=== PATIENT | male | born 1990 | race Caucasian/White ===

== ENCOUNTER 2020-08-21 11:10 | Outpatient (REF) | payer OTHER, SELFPAY | END 2020-08-21 11:11 | disposition home or self-care (01) | LOC: HO.LAB 11:10 | PROVIDERS: Visit Provider Nurse Practitioner Family | DX: Z13.89 Encounter for screening for other disorder (principal) ==

== ENCOUNTER 2023-01-27 09:46 | Outpatient (REF) | payer OTHER, SELFPAY ==
--- NOTE | ~2023-01-27 | XR_ITS ---
EXAMINATION: XR KNEE, RIGHT CLINICAL INFORMATION: Instability COMPARISON: None available. TECHNIQUE: Four views of the right knee. FINDINGS: Joint spaces preserved. Alignment preserved. No fracture or destructive lesion. No erosive change. XR/XR knee RT 3V IMPRESSION: Unremarkable exam.
== END 2023-01-27 09:47 | disposition home or self-care (01) ==
LOC: HO.XRAY 09:46
PROVIDERS: PCP Internal Medicine; Visit Provider Internal Medicine
DX: M23.51 Chronic instability of knee, right knee (principal)
CPT/HCPCS: 73562

== ENCOUNTER 2023-04-24 12:24 | Outpatient (REF) | payer OTHER, SELFPAY ==
--- NOTE | ~2023-04-24 | XR_ITS ---
EXAMINATION: XR KNEE, RIGHT CLINICAL INFORMATION: Chronic instability of right knee COMPARISON: 01/27/2023 TECHNIQUE: Single sunrise view right knee FINDINGS: There is normal articulation of the patella with similar with no evidence of narrowing of joint spaces or soft tissue edema. There is no joint effusion. XR/XR knee LT 1V IMPRESSION: Normal appearance of right knee on the sunrise view
== END 2023-04-24 12:25 | disposition home or self-care (01) ==
LOC: HO.HOSX 12:24
PROVIDERS: Visit Provider Orthopaedic Surgery
DX: M25.561 Pain in right knee (principal); M23.51 Chronic instability of knee, right knee
CPT/HCPCS: 73560; 99202

== ENCOUNTER 2023-04-24 12:56 | Outpatient (AMB) | payer OTHER, SELFPAY ==
--- NOTE | 2023-04-24 13:00 | MHC.OFFVIS ---
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 Patient reports that he has pain on the medial aspect of the knee , the pain is present at all times and worsened with activity particular, prolonged standing walking and stairs. He has not tried any previous therapies. He uses ice application after increased activity which does help mildly. Patient reports that he has had ongoing back pain (lower and upper back), he has had this pain for about 3 months now. He is seeing a chiropractor which is helping but he is still having pain. 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 He is a member of the . His primary complaint is of knee instability. He says this is worse when standing from a squat, where he feels his knee wants to go two different ways . He says this happens all the time and he feels pain and difficulty when squatting with weight. He complains of a crackling sound in his knee. He also complains of some lower back pain. [facility] Medical History No pertinent past medical history Surgical History No pertinent past surgical history Social History (Updated 04/24/23 @ 13:05 by Xiomara Barraza CMA) Housing: House Alcohol intake: current Alcohol intake frequency: holidays/special occasions only Patient Tobacco Use Status: Never used Tobacco e-Cigarette/Vaping Use: Never Used service: Yes Current occupational status: employed Current occupation: - [employer] Current occupational exposures/hazards: No Cognitive needs: No Hearing needs: No Vision needs: No Review of Systems Const All systems reviewed & are unremarkable except as noted in HPI and below Physical Exam Vital Signs: BMI result Body Mass Index 33.2 Const General: no acute distress, alert and awake Orientation/consciousness: patient oriented x3 HEENT Head: Yes normocephalic and Yes atraumatic Eyes EOM: EOMs intact bilaterally Resp Effort & Inspection: normal respiratory effort and able to speak in complete sentences Cardio Jugular venous distension: no JVD Skin General skin exam: turgor normal Rashes: no rashes Neuro General: patient oriented x3 Extrem Other: Right Knee: Benign exam Mild crepitus with patellar grind Psych Appearance: grossly normal Affect: normal affect Attitude: cooperative Results Reviewed Results Reviewed: I personally reviewed relevant radiographs. Unremarkable right knee Assessment & Plan Assessment & Plan (1) Right knee pain: Code(s): M25.561 - Pain in right knee Plan: This is a 32 year old man with right knee pain. He has anterior knee pain and feelings of instability primarily when standing from a deep squatting position, worse when done with excess weight. He finds some relief with ice and denies any prior treatment. I discussed his diagnosis and treatment options. I recommend he modify his activities to avoid deep squatting exercises unassisted. I demonstrated alternative exercises he can perform. No additional intervention warranted. (2) Recurrent right knee instability: Code(s): M23.51 - Chronic instability of knee, right knee Plan Scribed for Michael Vital MD by Deric Early, medical services coordinator, on 04/24/23 at 1:25 PM, EST. Coding Level of Care Code New Pt Level 3 (12324) Diagnoses Right knee pain M25.561 Recurrent right knee instability M23.51
[2023-04-24 13:01] VITALS: BMI 33.2
== END 2023-04-24 13:32 | disposition home or self-care (01) ==
PROVIDERS: PCP Internal Medicine; Visit Provider Orthopaedic Surgery
DX: M25.561 Pain in right knee (principal); M23.51 Chronic instability of knee, right knee
CPT/HCPCS: 99203

== ENCOUNTER 2025-01-14 08:28 | Outpatient (AMB) | payer OTHER, SELFPAY ==
[2025-01-14 08:30] VITALS: BP 124/92; PULSE 85; RESP 20; TEMP 37.2; O2SAT 99; BMI 32.5
--- NOTE | 2025-01-14 08:30 | MHC.PC.OV ---
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 Accompanied by: Self / Same As Patient Allergies No Known Allergies Allergy (Verified 01/14/25 08:34) Medication List - Last Reconciled 01/14/25 by BRENT Marino No Known Home Meds Tobacco use date assessed: 01/14/25 Dental Screening Dental Screen Date: 01/14/25 Did you have a dental visit in the last 12 months?: Yes Did you have a dental problem in the last 6 months where you did not have access to dental care?: No Was dental information given to patient?: Patient has dentist HPI lower back left pain HPI Details Patient is a 34-year-old male with medical history of right knee pain, low back pain Presenting with back pain, which began roughly one month ago. The pain is localized to the left gluteal area, with radiation noted upwards to the back and downwards along the leg. The condition is most troublesome during sleep, interfering with sleep quality, while improving with activity during daytime. No specific event is identified as a trigger. The pain is described as a constant poking sensation, rated at 8 out of 10 on a pain scale. The patient notices occasional numbness when stepping down, but otherwise does not experience numbness or tingling. Prior attempts at self-care included ibuprofen otc, ice,heat topical and stretching, with some success using ice packs over heating methods. [facility] Medical History No pertinent past medical history Surgical History No pertinent past surgical history Social History Housing: House Alcohol intake: current Alcohol intake frequency: holidays/special occasions only Patient Tobacco Use Status: Never used Tobacco e-Cigarette/Vaping Use: Never Used service: Yes Current occupational status: employed Current occupation: - [employer] Current occupational exposures/hazards: No Cognitive needs: No Hearing needs: No Vision needs: No Questionnaire PHQ-9 Over the last 2 weeks, how often have you been bothered by any of the following problems? 1. Little interest or pleasure in doing things: not at all 2. Feeling down, depressed, or hopeless: not at all 3. Trouble falling or staying asleep, or sleeping too much: not at all 4. Feeling tired or having little energy: not at all 5. Poor appetite or overeating: not at all 6. Feeling bad about yourself - or that you are a failure or have let yourself or your family down: not at all 7. Trouble concentrating on things, such as reading the newspaper or watching television: not at all 8. Moving or speaking so slowly that other people could have noticed. Or the opposite - being so fidgety or restless that you have been moving around a lot more than usual: not at all 9. Thoughts that you would be better off or of hurting yourself in some way: not at all Total score: 0 Depression Screening Interpretation: Negative Depression Screening Done: Yes 87361 - PHQ-9 Billing: Yes Source: Developed by Drs. Miguel Quan, Rosalind Benjamin, Keyon Henriquez and colleagues, with an educational isreal from [employer]. Thrive Questionnaire Date Thrive assessed: 01/14/25 I am a: Patient What is your living situation today?: I have a steady place to live Within the past 12 months, did the food you bought not last and you didn't have the money to get more?: Never true Within the past 12 months, did you worry whether your food would run out before you got money to buy more?: Never true Do you have trouble paying for medicines?: No Do you have trouble getting transportation to medical appointments?: No Do you have trouble paying your heating and electricity bill?: No Do you have trouble taking care of your child, family member or friend?: No Do you have trouble with day-to-day activities such as bathing, preparing meals, shopping, managing finances, etc.?: No Are you currently unemployed and looking for a job?: No Are you interested in more education?: No Please select the resources that you would like help with: None Currently or been in a relationship where the following occur: No concerns reported THRIVE Score: 0 AUDIT C Alcohol Use Questionnaire (AUDIT-C) 1. How often do you have a drink containing alcohol?: Monthly or less 2. How many drinks containing alcohol do you have on a typical day when you are drinking?: 1 or 2 3. How often do you have six or more drinks on one occasion?: Never Total Score: 1 Score Reviewed/Action Taken: No STEPHEN-7 AMB Questionnaire STEPHEN-7 Date STEPHEN - 7 assessed: 01/20/23 Feeling nervous, anxious, or on edge: 0 = Not at all Not being able to stop or control worryin = Not at all Worrying too much about different things: 0 = Not at all Trouble relaxin = Not at all Being so restless that it is hard to sit still: 0 = Not at all Becoming easily annoyed or irritable: 0 = Not at all Feeling afraid as if something awful might happen: 0 = Not at all Total STEPHEN-7 score (0-4 normal; 5-9 mild; 10-14 moderate; 15-21 severe): 0 Source: Developed by Drs. Miguel Quan, Rosalind Benjamin, Kyeon Henriquez and colleagues, with an educational isreal from [employer]. STEPHEN-7 Assessment Billing STEPHEN-7 Assessment Tool: STEPHEN-7 Assessment 32948 Review of Systems Const Denies headache(s) Eyes Denies loss of vision ENT Denies headache(s) Card Denies chest pain, Denies leg edema and Denies lightheadedness Resp Denies cough, Denies hemoptysis and Denies wheezing GI Denies abdominal pain, Denies melena, Denies constipation, Denies diarrhea and Denies vomiting Denies dysuria, Denies urinary frequency and Denies urinary urgency Musc Reports back pain (Radiating left gluteal, left upper leg and back up to left upper back), Denies arthralgias, Denies joint swelling, Denies numbness and Denies tingling Neuro Denies headache(s), Denies loss of vision, Denies numbness and Denies tingling Edgar/Lymph Denies easy bleeding and Denies easy bruising Aller/Immun Denies wheezing Physical exam (Primary Care) Vital Signs: Oxygen Delivery Method Room Air 01/14/25 08:30 BMI result Body Mass Index 32.5 Tobacco/Smoking Status: Tobacco use Status Tobacco use date assessed 01/20/23 01/20/23 16:17 Patient Tobacco Use Status Never used Tobacco 04/24/23 13:05 e-Cigarette/Vaping Use Never Used 04/24/23 13:05 Depression Screening Interpretation: Negative Thrive Assessment: Date of Thrive Assessment Date Thrive assessed 01/12/25 01/12/25 13:07 Currently or been in a relationship where the following occur: No concerns reported Const General: healthy appearing, no acute distress, alert and awake Nutritional Appearance: well nourished Orientation/consciousness: oriented to person, oriented to place and oriented to time HENMT Ears: external ears normal General nose exam: Normal external nose present Eyes Conjunctivae: conjunctivae normal Sclerae: sclerae normal Pupils: Equal, round and reactive pupils present Neck Thyroid: Thyroid normal Carotids: no bruits Resp Effort & Inspection: normal respiratory effort and not tachypneic Auscultation: no crackles, no rales, no rhonchi and no wheezes Cardio Rate: regular rate Rhythm: regular rhythm Heart sounds: no murmurs and normal S1 and S2 GI Palpation (GI): Soft to palpation, nontender, no hepatomegaly and no splenomegaly Auscultation: normal bowel sounds General: Yes no CVA tenderness Back/Spine/Pelvis Back: no CVA tenderness Thoracic/Lumbar Spine: straight leg raise negative bilaterally, No thoraco-lumbar spasm and No thoracic spinal tenderness Neuro General: oriented to person, oriented to place and oriented to time Cranial nerves: Yes Equal, round and reactive pupils present Gait exam (Neuro): Normal gait present Motor exam (neuro): no tremor noted Extrem Right upper extremity: full ROM Left upper extremity: full ROM Right lower extremity: full ROM; no edema Left lower extremity: full ROM; no edema Coding Level of Care Code Est Pt Level 3 (10807) Diagnoses Midline low back pain, unspecified chronicity, unspecified whether sciatica present M54.50 Chronicity: unspecified Back pain laterality: midline Sciatica presence: unspecified whether sciatica present Additional Codes STEPHEN-7 Assessment Billing - STEPHEN-7 Assessment Tool: STEPHEN-7 Assessment 77162 ([id number]) PHQ-9 - 90721 - PHQ-9 Billing: Yes ([id number]) Time Spent (min) 29 Assessment & Plan Assessment & Plan (1) Low back pain: Code(s): M54.50 - Low back pain, unspecified Category: Medical Qualifiers: Chronicity: unspecified Back pain laterality: midline Sciatica presence: unspecified whether sciatica present Qualified Code(s): M54.50 - Low back pain, unspecified Plan: The management plan includes ordering a lumbar x-ray to assess for any underlying spinal concerns contributing to the back pain and sciatica. I have prescribed a muscle relaxer specifically for nighttime use, taking into consideration the patient's occupational and daily performance needs. I recommended continued use of ice therapy based on its effectiveness. Should these measures prove insufficient or if the patient's condition deteriorates, further evaluation or treatment options including physical therapy may be considered. Patient was informed and verbally consented to the use of an ambient scribe for clinic note documentation during this visit. Orders: Orders XR lumbar spine 2-3V Today M54.50 - Low back pain, unspecified Medications: New tizanidine 6 mg PO BEDTIME PRN 30 caps 1RF muscle spasticity Patient Instructions: - Use muscle relaxers at bedtime as prescribed. - Apply ice packs for pain management - Monitor symptoms and should they worsen, contact us for a follow-up. - Continue with regular stretching and chiropractic visits if beneficial.
== END 2025-01-14 08:57 | disposition home or self-care (01) ==
LOC: HO.HMCH 08:29
PROVIDERS: PCP Internal Medicine
DX: M54.50 Low back pain, unspecified (principal)

== ENCOUNTER → 2025-01-14 08:28 | Outpatient (BNVA) | payer OTHER, SELFPAY | PROVIDERS: PCP Internal Medicine | DX: M54.50 Low back pain, unspecified (principal) | CPT/HCPCS: 96127; 99212 ==

== ENCOUNTER 2025-01-20 10:52 | Outpatient (REF) | payer OTHER, SELFPAY ==
--- NOTE | ~2025-01-20 | XR_ITS ---
EXAMINATION: XR LUMBOSACRAL SPINE CLINICAL INFORMATION: M54.50 - Low back pain, unspecified COMPARISON: None available. TECHNIQUE: Three views of the lumbosacral spine. FINDINGS: Mild levoconvex curvature. No acute cortical disruption. 1 mm retrolisthesis, L4-5 . Spina bifida occulta S1, congenital. No metallic or radiopaque foreign body. No lytic or blastic lesions. XR/XR lumbar spine 2-3V IMPRESSION: Probable grade 1 retrolisthesis at L4-5. Electronically signed by: Juliano Velez MD 01/20/2025 11:21 AM EDT
== END 2025-01-20 10:53 | disposition home or self-care (01) ==
LOC: HO.XRAY 10:52
PROVIDERS: PCP Internal Medicine
DX: M54.50 Low back pain, unspecified (principal)
CPT/HCPCS: 72100

== ENCOUNTER → 2025-01-20 10:56 | Outpatient (BNV) | payer OTHER, SELFPAY | PROVIDERS: PCP Internal Medicine; Visit Provider Radiology Diagnostic Radiology | DX: M54.50 Low back pain, unspecified (principal) | CPT/HCPCS: 72100 ==

== ENCOUNTER 2025-05-06 13:50 | Outpatient (REF) | payer BC, SELFPAY ==
[2025-05-06 15:17] LABS: MANUAL DIFF FLAG NO
[2025-05-06 15:40] LABS: Hematocrit 40.2 % (42.0-52.0); Hemoglobin 13.9 g/dl (14.0-18.0); Imm Gran Abs Auto 0.02 X10*3/uL (0.00-0.03); Imm Gran Pct Auto 0.3 % (0.0-0.4); Lymphocytes Absolute Auto 2.3 X10*3/uL (1.2-4.9); Mean Corpuscular HGB Conc 34.6 g/dl (31.0-36.0); Mean Corpuscular Hemoglobin 30.4 pg (27.0-33.0); Mean Corpuscular Volume 88.0 fL (80.0-98.0); NRBC Abs Auto 0.000 X10*3/uL (0.0-0.012); NRBC Pct Auto 0.0 /100WBC (0.0-0.2); Platelet Count 266 X10*3/uL (160-400); Red Blood Count 4.57 X10*6/uL (4.60-5.80); White Blood Count 6.6 X10*3/uL (4.8-10.8)
[2025-05-06 15:54] LABS: Appearance Urine Clear; Glucose Urine UA Negative (Negative); PH 6.0 (5.0-9.0); Specific Gravity - Urine 1.025 (1.005-1.025)
[2025-05-06 16:24] LABS: Alanine Aminotransferase 23 U/L (0-40); Albumin Level 5.0 g/dL (3.5-5.0); Alkaline Phosphatase 58 U/L (39-117); Anion Gap 13 (12-20); Aspartate Amino Transferase 23 U/L (5-37); Blood Urea Nitrogen 16 mg/dL (9-16); Calcium 9.4 mg/dL (8.4-10.2); Carbon Dioxide 27 mmol/L (22-29); Chloride 108 mmol/L (96-108); Cholesterol 252 mg/dL (<200); Estimated Glomerular Filt Rate > 60; Potassium 4.1 mmol/L (3.3-5.1); Sodium 144 mmol/L (135-145); Total Protein 7.6 g/dL (6.5-8.0)
== END 2025-05-06 13:51 | disposition home or self-care (01) ==
LOC: HO.LAB 13:50
PROVIDERS: PCP Internal Medicine; Visit Provider Internal Medicine
DX: Z00.00 Encounter for general adult medical examination without abnormal findings (principal); R30.0 Dysuria; D64.9 Anemia, unspecified; E55.9 Vitamin D deficiency, unspecified; E78.00 Pure hypercholesterolemia, unspecified; E66.9 Obesity, unspecified; Z68.31 Body mass index [BMI] 31.0-31.9, adult
CPT/HCPCS: 36415; 80053; 81003; 82306; 82465; 84443; 85025; 96127

== ENCOUNTER 2025-05-06 13:50 | Outpatient (AMB) | payer BC, SELFPAY ==
[2025-05-06 13:57] VITALS: BP 112/56; PULSE 103; RESP 18; TEMP 36.4; O2SAT 98; BMI 31.7
--- NOTE | 2025-05-06 13:57 | A.OFFPC_ITS ---
Vital Signs 05/06/25 13:57 Height 5 ft 9 in Weight 215 lb BMI 31.7 BP 112/56 L Blood Pressure Location Lt brachial Position Sitting Respiration 18 Pulse 103 H Pulse Source Pulse Oximeter Temp 97.5 F Temp Source Temporal Artery Scan Pulse Oximetry (%) 98 Oxygen Delivery Method Room Air Intake Visit Reasons: annual exam Wedger Machine Required: No Accompanied by: Self / Same As Patient Allergies No Known Allergies Allergy (Verified 05/06/25 14:10) Medication List - Last Reconciled 05/06/25 by Ariel Maciel MD tizanidine 6 mg (1.5 x 4 mg) PO BEDTIME PRN 30 days Tobacco use date assessed: 05/06/25 Dental Screening Dental Screen Date: 05/06/25 Did you have a dental visit in the last 12 months?: Yes Did you have a dental problem in the last 6 months where you did not have access to dental care?: No Was dental information given to patient?: Patient has dentist HPI annual exam HPI Details Patient comes in today for his annual physical examination States that he feels okay He denies any headaches or dizziness Denies any chest pains, no shortness of breath No nausea/vomiting, no abdominal pain No change in bowel habits noted He denies any acute urinary symptoms [facility] Medical History (Updated 05/12/25 @ 04:34 by Ariel Maciel MD) Obesity (BMI 30-39.9) Surgical History No pertinent past surgical history Social History Housing: House Alcohol intake: current Alcohol intake frequency: holidays/special occasions only Patient Tobacco Use Status: Never used Tobacco e-Cigarette/Vaping Use: Never Used service: Yes Current occupational status: employed Current occupation: [email or web address] Current occupational exposures/hazards: No Cognitive needs: No Hearing needs: No Vision needs: No Questionnaire PHQ-9 Over the last 2 weeks, how often have you been bothered by any of the following problems? 1. Little interest or pleasure in doing things: not at all 2. Feeling down, depressed, or hopeless: not at all 3. Trouble falling or staying asleep, or sleeping too much: not at all 4. Feeling tired or having little energy: not at all 5. Poor appetite or overeating: not at all 6. Feeling bad about yourself - or that you are a failure or have let yourself or your family down: not at all 7. Trouble concentrating on things, such as reading the newspaper or watching television: not at all 8. Moving or speaking so slowly that other people could have noticed. Or the opposite - being so fidgety or restless that you have been moving around a lot more than usual: not at all 9. Thoughts that you would be better off or of hurting yourself in some way: not at all Total score: 0 Depression Screening Interpretation: Negative Depression Screening Done: Yes 82575 - PHQ-9 Billing: Yes Source: Developed by Drs. Miguel Quan, Rosalind Benjamin, Keyon Henriquez and colleagues, with an educational isreal from [employer]. Thrive Questionnaire Date Thrive assessed: 05/06/25 I am a: Patient What is your living situation today?: I have a steady place to live Within the past 12 months, did the food you bought not last and you didn't have the money to get more?: Never true Within the past 12 months, did you worry whether your food would run out before you got money to buy more?: Never true Do you have trouble paying for medicines?: No Do you have trouble getting transportation to medical appointments?: No Do you have trouble paying your heating and electricity bill?: No Do you have trouble taking care of your child, family member or friend?: No Do you have trouble with day-to-day activities such as bathing, preparing meals, shopping, managing finances, etc.?: No Are you currently unemployed and looking for a job?: No Are you interested in more education?: No Please select the resources that you would like help with: None Currently or been in a relationship where the following occur: No concerns reported THRIVE Score: 0 AUDIT C Alcohol Use Questionnaire (AUDIT-C) 1. How often do you have a drink containing alcohol?: Monthly or less 2. How many drinks containing alcohol do you have on a typical day when you are drinking?: 1 or 2 3. How often do you have six or more drinks on one occasion?: Never Total Score: 1 Score Reviewed/Action Taken: Yes STEPHEN-7 AMB Questionnaire STEPHEN-7 Date STEPHEN - 7 assessed: 01/20/23 Feeling nervous, anxious, or on edge: 0 = Not at all Not being able to stop or control worryin = Not at all Worrying too much about different things: 0 = Not at all Trouble relaxin = Not at all Being so restless that it is hard to sit still: 0 = Not at all Becoming easily annoyed or irritable: 0 = Not at all Feeling afraid as if something awful might happen: 0 = Not at all Total STEPHEN-7 score (0-4 normal; 5-9 mild; 10-14 moderate; 15-21 severe): 0 Source: Developed by Drs. Miguel Quan, Rosalind Benjamin, Keyon Henriquez and colleagues, with an educational isreal from [employer]. STEPHEN-7 Assessment Billing STEPHEN-7 Assessment Tool: STEPHEN-7 Assessment 45581 Review of Systems Const Denies chills, Denies fatigue, Denies fever(s), Denies headache(s), Denies malaise and Denies weakness Eyes Denies blurry vision, Denies change in vision, Denies irritation and Denies itchy eyes ENT Denies dysphagia, Denies dizziness, Denies otalgia, Denies headache(s), Denies nasal congestion, Denies neck pain, Denies odynophagia and Denies sore throat Card Denies chest pain, Denies rapid heart rate, Denies irregular heart rhythm, Denies palpitations and Denies dyspnea Resp Denies chest congestion, Denies cough, Denies dyspnea and Denies wheezing GI Denies abdominal pain, Denies bloating, Denies constipation, Denies dysphagia, Denies heartburn, Denies diarrhea, Denies nausea, Denies odynophagia and Denies vomiting Denies hematuria, Denies difficulty urinating, Denies dysuria, Denies urinary frequency and Denies urinary urgency Musc Denies back pain, Denies arthralgias, Denies joint swelling, Denies muscle weakness and Denies neck pain Skin/Breast Denies change in pigmentation, Denies lesions, Denies rash and Denies unusual bruising Neuro Denies dizziness, Denies headache(s), Denies paresthesias and Denies weakness Endo Denies fatigue and Denies palpitations Aller/Immun Denies itchy eyes and Denies wheezing Physical exam (Primary Care) Vital Signs: Last Vital Signs Temp 97.5 F 05/06/25 13:57 Pulse 103 H 05/06/25 13:57 Resp 18 05/06/25 13:57 BP 112/56 L 05/06/25 13:57 Pulse Ox 98 05/06/25 13:57 Oxygen Delivery Method Room Air 05/06/25 13:57 BMI result Body Mass Index 31.7 Tobacco/Smoking Status: Tobacco use Status Tobacco use date assessed 05/06/25 05/06/25 14:04 Patient Tobacco Use Status Never used Tobacco 05/06/25 14:04 e-Cigarette/Vaping Use Never Used 05/06/25 14:04 PHQ-9: PHQ-9 Score PHQ-9: Total score 0 05/06/25 14:12 Depression Screening Interpretation: Negative Thrive Assessment: Date of Thrive Assessment Date Thrive assessed 05/06/25 05/06/25 14:04 Currently or been in a relationship where the following occur: No concerns reported Const General: no acute distress, alert and awake Orientation/consciousness: patient oriented x3 HENMT Head: Yes normocephalic and Yes atraumatic Ears: external ears normal, TM's normal bilaterally and EAC's normal General nose exam: No nasal discharge present Face and sinus: Yes normal facial exam and Yes sinuses nontender Teeth and gingiva: dentition normal Throat: Yes posterior oropharynx normal and Yes tonsils normal (no TP congestion) Eyes Eyelids: Yes eyelids normal Conjunctivae: conjunctivae normal Pupils: Equal, round and reactive pupils present EOM: EOMs intact bilaterally Neck Neck: Yes no lymphadenopathy and Yes supple Thyroid: Thyroid normal Resp Auscultation: clear to auscultation bilaterally, no rales and no wheezes Cardio Rate: regular rate Rhythm: regular rhythm Heart sounds: no murmurs GI Palpation (GI): Soft to palpation, nontender and No hepatosplenomegaly present Auscultation: normal bowel sounds General: Yes no CVA tenderness Back/Spine/Pelvis Back: no CVA tenderness Thoracic/Lumbar Spine: thoracic and lumbar spine normal to inspection Skin Lesions: no lesions Rashes: no rashes Neuro General: patient oriented x3, moves all extremities, no focal motor deficits and CN's II-XI intact bilaterally Cranial nerves: Yes Equal, round and reactive pupils present Cognition (Neuro): normal cognition Gait exam (Neuro): Normal gait present Extrem General: Yes no clubbing, cyanosis or edema Coding Level of Care Code Est Pt Prev Care 18-39y(78018) Diagnoses Annual physical exam Z00. Obesity (BMI 30-39.9) E66.9 Additional Codes STEPHEN-7 Assessment Billing - STEPHEN-7 Assessment Tool: STEPHEN-7 Assessment 20318 ([id number]) PHQ-9 - 49270 - PHQ-9 Billing: Yes ([id number]) Assessment & Plan Assessment & Plan (1) Annual physical exam: Code(s): Z00. - Encounter for general adult medical examination without abnormal findings Category: Medical Plan: Check labs to complete his annual exam (2) Obesity (BMI 30-39.9): Code(s): E66.9 - Obesity, unspecified Category: Medical Plan: Reinforced diet/exercise as tolerated/lose weight Plan To return in 1 year for his next annual physical examination Orders: Orders Comprehensive Met. Panel 05/06/25 Z00. - Encounter for general adult medical examination without abnormal findings TSH reflex Free T4 05/06/25 E78.00 - Pure hypercholesterolemia, unspecified, Z. - Encounter for general adult medical examination without abnormal findings Vitamin D 25-OH Total 05/06/25 E55.9 - Vitamin D deficiency, unspecified, Z. - Encounter for general adult medical examination without abnormal findings Complete Blood Count Auto Diff 05/06/25 D64.9 - Anemia, unspecified, Z. - Encounter for general adult medical examination without abnormal findings UA CC w/rflx Micro + Cult 05/06/25 R30.0 - Dysuria, Z00. - Encounter for general adult medical examination without abnormal findings Cholesterol 05/06/25 Z00. - Encounter for general adult medical examination without abnormal findings
--- OUTSIDE RECORDS SUMMARY | 2025-05-06 15:03 | XMS_ITS | Continuity of Care Document ---
Author Name [facility] Organization [facility] Care Team Providers Care Compliance Counsel Name Role Phone [facility] Unavailable Unavailable Medications Combined list of outpatient medications from Department of Defense and Veterans Affairs facilities.Medications provided include 1) outpatient medications from the last 15 months, and 2) patient-reported medications. Medication Details Route Status Patient Instructions Prescription Expires Prescription Number Last Dispense Date Ordering Provider Order Date Order Qty Source amoxicillin 875 mg oral tablet 0 total refill(s ) Ordered 2021 No Facilit y Access Immunizations Combined list of available immunizations from the Department of Defense and Veterans Affairs facilities. Immunization Series Date Given Administered By Site Reaction Lot Number CVX Code Drug Building Maintenance Superintendent Status Comments Source influenza virus vaccine, inactivated 2023 ANDREINA [place] александр, left (delt oid) [id number] 140 [employer] complet ed influenza virus vaccine, inactivat ed 07/07/24 Given 8203R-1 04 MDG tetanus, diphtheria, acellular pertu is 2023 JUAN C fountain, left (delt oid) [id number] sanofi pasteur complet ed tetanus, diphtheri a, acellular pertussis 11/16/23 Recorded 8203R-1 04 MDG Influenza, injectable, quadrivalent, preservative free 0 2021 [id number] 150 SmithKline (SKB) complet ed Influenza , injectabl e, quadrival ent, preservat kathryn free DoD influenza, injectable, quadrivalent 2020 [id number] 158 GlaxoSmithKli ne complet ed influenza , injectabl e, quadrival ent 07/06/21 Given Ambulat ory Pharmac y influenza, injectable, quadrivalent, contains preservative 8 2020 [id number] 158 SmithKline (SKB) complet ed influenza , injectabl e, quadrival ent, contains preservat kathryn DoD COVID Vaccine Moderna 2020 [id number] complet ed COVID Vaccine Moderna 9/20/21 Given Ambulat ory Pharmac y SARS-COV-2 (COVID-19) vaccine, mRNA, spike protein, LNP, preservative free, 100 mcg or 50 mcg dose 2 2020 [id number] 207 Moderna [employer]. (MOD) complet ed SARS-COV- 2 (COVID-19 ) vaccine, mRNA, spike protein, LNP, preservat kathryn free, 100 mcg or 50 mcg dose DoD COVID Vaccine Moderna 2020 [id number] complet ed COVID Vaccine Moderna 04/24/21 Given Ambulat ory Pharmac y SARS-COV-2 (COVID-19) vaccine, mRNA, spike protein, LNP, preservative free, 100 mcg or 50 mcg dose 1 2020 [id number] 207 Modern [employer]. (MOD) complet ed SARS-COV- 2 (COVID-19 ) vaccine, mRNA, spike protein, LNP, preservat kathryn free, 100 mcg or 50 mcg dose DoD influenza, injectable, quadrivalent- pf 2019 [id number] 150 Seqirus complet ed influenza , injectabl e, quadrival ent-pf 07/19/20 Given Ambulat ory Pharmac y Influenza, injectable, quadrivalent, preservative free 1 2019 [id number] 077 150 Seqirus (SEQ) complet ed Influenza , injectabl e, quadrival ent, preservat kathryn free DoD influenza, injectable, quadrivalent- pf 2018 [id number] 520 150 Seqirus complet ed influenza , injectabl e, quadrival ent-pf 07/07/19 Given Ambulat ory Pharmac y Influenza, injectable, quadrivalent, preservative free 7 2018 [id number] 520 150 Seqirus (SEQ) complet ed Influenza , injectabl e, quadrival ent, preservat kathryn free DoD [place] Encephalitis IM 2018 [id number] 9E 134 Valneva complet ed [place] Encephali tis IM 11/08/18 Given Ambulat ory Pharmac y anthrax vaccine 2018 [id number] 24 Emergent Biosolutions complet ed anthrax vaccine 11/08/18 Given Ambulat ory Pharmac y anthrax vaccine 2 2018 [id number] 24 Emergent [employer] [place] (MIP) complet ed anthrax vaccine DoD [place] Encephalitis vaccine for intramuscular administratio n 2 2018 [id number] 9E 134 Valneva (RAQUEL) complet ed [place] Encephali tis vaccine for intramusc ular administr ation DoD vaccinia (smallpox) vaccine 2018 [id number] 019 C 75 sanofi pasteur complet ed vaccinia (smallpox ) vaccine 10/18/18 Given Ambulat ory Pharmac y [place] Encephalitis IM 2018 [id number] 8E 134 Valneva complet ed [place] Encephali tis IM 10/18/18 Given Ambulat ory Pharmac y vaccinia (smallpox) vaccine 1 2018 [id number] 019 C 75 Sanofi Pasteur (PMC) complet ed vaccinia (smallpox ) vaccine DoD [place] Encephalitis vaccine for intramuscular administratio n 1 2018 [id number] 8E 134 Valneva (RAQUEL) complet ed [place] Encephali tis vaccine for intramusc ular administr ation DoD typhoid Vi capsular polysaccharid e vac 2018 [id number] 101 sanofi pasteur complet ed typhoid Vi capsular polysacch aride vac 10/13/18 Given Ambulat ory Pharmac y anthrax vaccine 2018 [id number] 24 complet ed anthrax vaccine 10/13/18 Given Ambulat ory Pharmac y anthrax vaccine 1 2018 24 Transcribed (TRS) complet ed anthrax vaccine DoD typhoid Vi capsular polysaccharid e vaccine 1 2018 [id number] 101 Sanofi Pasteur (PMC) complet ed typhoid Vi capsular polysacch aride vaccine DoD influenza, injectable, quadrivalent 2018 [id number] 158 Seqirus complet ed influenza , injectabl e, quadrival ent 09/15/18 Given Ambulat ory Pharmac y influenza, injectable, quadrivalent, contains preservative 6 2018 [id number] 158 Seqirus (SEQ) comple t ed influenza , injectabl e, quadrival ent, contains preservat kathryn DoD influenza, seasonal, injectable-pf 2016 [id number] 140 Seqirus complet ed influenza , seasonal, injectabl e-pf 06/08/17 Given Ambulat ory Pharmac y Influenza, seasonal, injectable, preservative free 1 2016 [id number] 140 Seqirus (SEQ) comple t ed Influenza , seasonal, injectabl e, preservat kathryn free DoD influenza, seasonal, injectable-pf 2015 [id number] 140 Seqirus complet ed influenza , seasonal, injectabl e-pf 07/10/16 Given Ambulat ory Pharmac y Influenza, seasonal, injectable, preservative free 1 2015 [id number] 140 Seqirus (SEQ) comple t ed Influenza , seasonal, injectabl e, preservat kathryn free DoD typhoid Vi capsular polysaccharid e vac 2015 Y0074-1 101 sanofi pasteur complet ed typhoid Vi capsular polysacch aride vac 12/05/15 Given Ambulat ory Pharmac y typhoid Vi capsular polysaccharid e vaccine 1 2015 E2268-9 101 Sanofi Pasteur (PMC) complet ed typhoid Vi capsular polysacch aride vaccine DoD influenza, live, intranasal,qu adrivalent 2014 [id number] 149 Medimmune Inc comple t ed influenza , live, intranasa l,quadriv alent 07/11/15 Given Ambulat ory Pharmac y influenza, live, intranasal, quadrivalent 3 2014 [id number] 149 Eykona Technologies, Inc. (MED) complet ed influenza , live, intranasa l, quadrival ent DoD hepatitis A adult vaccine 2014 [id number] 52 GlaxoSmithKli ne complet ed hepatitis A adult vaccine 09/14/14 Given Ambulat ory Pharmac y hepatitis B adult vaccine 2014 [id number] 43 Merck & Company Inc complet ed hepatitis B adult vaccine 09/14/14 Given Ambulat ory Pharmac y hepatitis B vaccine, adult dosage 3 2014 [id number] 43 Merck (MSD) complet ed hepatitis B vaccine, adult dosage DoD hepatitis A vaccine, adult dosage 3 2014 [id number] 52 Shield Therapeuticsine (SKB) complet ed hepatitis A vaccine, adult dosage DoD Influenza, injectable, MDCK-pf 2013 [id number] 153 Novartis Pharmaceutica ls complet ed Influenza , injectabl e, MDCK-pf 06/07/14 Given Ambulat ory Pharmac y Influenza, injectable, Madin Kensal Canine Kidney, preservative free 2 2013 [id number] 153 Novartis Pharmaceutica l Pat. (NOV) complet ed Influenza , injectabl e, Madin Flaca Canine Kidney, preservat kathryn free DoD hepatitis A-hepatitis B vaccine 2013 [id number] 104 GlaxoSmithKli ne complet ed hepatitis A-hepatit is B vaccine 12/30/13 Given Ambulat ory Pharmac y hepatitis A and hepatitis B vaccine 1 2013 [id number] 104 [facility] ([facility]) complet ed hepatitis A and hepatitis B vaccine DoD hepatitis A-hepatitis B vaccine 2013 [id number] 104 GlaxoSmithKli ne complet ed hepatitis A-hepatit is B vaccine 11/13/13 Given Ambulat ory Pharmac y hepatitis A and hepatitis B vaccine 1 2013 [id number] 104 [facility] ([facility]) complet ed hepatitis A and hepatitis B vaccine DoD tuberculin purified protein derivative 2013 [id number] 96 [facility] complet ed tuberculi n purified protein derivativ e 11/07/13 Given Ambulat ory Pharmac y adenovirus vaccine, live 2013 [id number] 0 143 Teva Pharmaceutica complet ed adenoviru s vaccine, live 11/07/13 Given Ambulat ory Pharmac y tetanus, diphtheria, acellular pertu is 2013 [id number] 115 [facility] ed tetanus, diphtheri a, acellular pertussis 11/07/13 Given Ambulat ory Pharmac y poliovirus vaccine, inactivated 2013 [id number] 10 sanofi pasteur complet ed polioviru s vaccine, inactivat ed 11/07/13 Given Ambulat ory Pharmac y meningococcal A,C,Y,W-135 (MCV4P) 2013 [id number] 114 sanofi pasteur complet ed meningoco ccal A,C,Y,W-1 35 (MCV4P) 11/07/13 Given Ambulat ory Pharmac y poliovirus vaccine, inactivated 1 2013 [id number] 10 Sanofi Pasteur (PMC) complet ed polioviru s vaccine, inactivat ed DoD meningococcal polysaccharid e (groups A, C, Y and W-135) diphtheria toxoid conjugate vaccine (MCV4P) 1 2013 [id number] 114 Sanofi Pasteur (PMC) complet ed meningoco ccal polysacch aride (groups A, C, Y and W-135) diphtheri a toxoid conjugate vaccine (MCV4P) DoD tetanus toxoid, reduced diphtheria toxoid, and acellular pertu is vaccine, adsorbed 1 2013 [id number] 115 [facility] ([facility] complet ed tetanus toxoid, reduced diphtheri a toxoid, and acellular pertussis vaccine, adsorbed DoD Adenovirus, type 4 and type 7, live, oral 1 2013 [id number] 0 143 [facility] ([facility]R) complet ed Adenoviru s, type 4 and type 7, live, oral DoD measles virus vaccine 0 2013 05 () Not Given measles virus vaccine DoD rubella virus vaccine 0 2013 06 () Not Given rubella virus vaccine DoD mumps virus vaccine 0 2013 07 () Not Given mumps virus vaccine DoD varicella virus vaccine 0 2013 21 () Not Given varicella virus vaccine DoD influenza, live, intranasal,qu adrivalent 2012 [id number] 149 MobiKwik Inc comple t ed influenza , live, intranasa l,quadriv alent 08/10/13 Given Ambulat ory Pharmac y influenza, live, intranasal, quadrivalent 1 2012 [id number] 149 E[employer]ona [employer], [employer]. (MED) complet ed influenza , live, intranasa l, quadrival ent DoD Results Combined list of recent chemistry, hematology and other laboratory results from Department of Defense and Veterans Affairs, ranging from 15 months to all on record, depending upon the facility. Order Name Results Value Reference Range Date Interpretation Specimen Comments Source Infectiou s Disease HIV-1/O/2 Non-Reac tive 1 (12/05/24 9:30 AM) 12/05 N Interpretiv e Data: INTERPRETAT ION: This method is a screening procedure for the detection of HIV p24 Antigen and Antibodies to HIV-1, including Group O, and/or HIV-2. NON-REACTIV E: HIV-1 antigen and HIV-1 / HIV-2 antibodies were not detected. No laboratory evidence of HIV infection. A negative test result does not exclude the possibility of exposure to or infection with HIV. HIV antibodies and/or p24 antigen may be undetectabl e in some stages of the infection and in some clinical conditions. If acute HIV infection is suspected, consider submitting another specimen to a reference laboratory for HIV-1 RNA. SCREEN REACTIVE - CONFIRMATIO N TO FOLLOW: Possible presence of HIV-1antibo dies, HIV-2 antibodies and/or HIV-1 p24 antigen. Specimen will reflex to the confirmatio n testing that fulfills the Center for Disease Control and Prevention' s HIV diagnostic algorithm. Refer to [facility] Lab Guide for additional information : [email or web address]/ [email or web address] x Testing performed by Dex gutierrez 5600A-U [facility] EPILAB Miscellan eous Sendouts Repository Sample Received (12/05/24 9:30 AM) 12/05 N 5600A-U [facility] EPILAB Encounters Combined list of: 1) Encounters from Department of [facility] Affairs facilities going backup to the last 18 months, not all OR inpatient encounters are included; 2) Encounters from the Department of Defense facilities going backup to 280 months. Location Location Details Encounter Type Encounter Number Reason For Visit Attending Provider ADM Date DC Date Status Disposition Source [place] [address](AFN G 104 Med Sq-FM) OUTPATIENT [id number] Notes Entered by: ANAHI HUSTON R 03 Mar 2017 0816 ------- ------- ------- ------- -- [employer] ice PHAQ MIKY HUSTON 03/03 Released w/o Limitations [facility] [place] [address](A FNG 104 Med Sq-FM) [place] [address](AFN G 104 Med Sq-FM) OUTPATIENT [id number] Notes Entered by: CASANDRA JIMÉNEZ 13 May 2017 0941 ------- ------- ------- ------- -- PHAQ follow up CASANDAR JIMÉNEZ 05/13 Released w/o Limitations [facility] [place] [address](A FNG 104 Med Sq-FM) [place] [address](AFN G 104 Med Sq-FM) OUTPATIENT [id number] JEN MON 10/14 Released w/o Limitations [facility] [place] [address](A FNG 104 Med Sq-FM) [place] [address](AFN G 104 Med Sq-FM) OUTPATIENT [id number] TRANG HSIEH 04/20 Released w/o Limitations [facility] [place] [address](A FNG 104 Med Sq-FM) [place] [address](AFN G 104 Med Sq-FM) OUTPATIENT [id number] Notes Entered by: BOOM HAWK 10 Aug 2019 1149 ------- ------- ------- ------- -- TRANG WINTERS 08/10 Released w/o Limitations [facility] [place] [address](A FNG 104 Med Sq-FM) [place] [address](AFN G 104 Med Sq-FM) OUTPATIENT [id number] Notes Entered by: ZANE WELLINGTON 02 Jun 2020 1106 ------- ------- ------- ------- -- GUSTAVO/S ZANE DOMINGUEZ 06/02 Released w/o Limitations [facility] [place] [address](A FNG 104 Med Sq-FM) [place] [address](AFN G 104 Med Sq-FM) OUTPATIENT [id number] Notes Entered by: PEPPER WATERS 14 Nov 2020 1520 ------- ------- ------- ------- -- [facility] ZANE WELLINGTON 11/14 Released w/o Limitations [facility] [place] [address](A FNG 104 Med Sq-FM) [place] [address](AFN G 104 Med Sq-FM) OUTPATIENT [id number] Notes Entered by: PEPPER WATERS 12 Nov 2021 1237 ------- ------- ------- ------- -- Audiogr am/PHAQ /FILEMON1 TRANG HAWK 11/12 Released w/o Limitations [facility] [place] [address](A FNG 104 Med Sq-FM) [place] [address](AFN G 104 Med Sq-FM) OUTPATIENT [id number] Notes Entered by: BOOM HAWK 25 Nov 2021 1239 ------- ------- ------- ------- -- PHAQ TRANG HAWK 11/25 Released w/o Limitations [facility] [place] [address](A FNG 104 Med Sq-FM) [place] [address](AFN G 104 Med Sq-FM) OUTPATIENT [id number] Notes Entered by: NAV PAZ 03 Nov 2022 0955 ------- ------- ------- ------- -- Audiogr am ZANE WELLINGTON 11/03 Released w/o Limitations [facility] [place] [address](A FNG 104 Med Sq-FM) 8203R-104 [place]G [place] Vaccine [id number] 07/07 Discharge Disposition: Home or Self Care 8203R-1 04 MDG 8203R-104 MDG [place] Vaccine [id number] 07/09 8203R-1 04 MDG 8203R-104 MDG Between Visit [id number] 08/08 Discharge Disposition: Home or Self Care 8203R-1 04 MDG 8203R-104 MDG Outpatient [id number] ISRAEL SORIANO 12/05 Discharge Disposition: Home or Self Care 8203R-1 04 MDG 8203R-104 MDG Care Not Rendered [id number] 12/05 Discharge Disposition: Home or Self Care 8203R-1 04 MDG Procedures Combined list of: 1) Procedures from Department of Veterans Affairs facilities going back up to thelast 18 months, not all OR non-surgical procedures are included; 2) All procedures from the Department of Defense facilities. Procedure Procedure Type Code Date Perfomer Comments Sourc e No data available for this section Ambulato ry Pharmacy THERAPEUTIC, PROPHYLACTIC, OR DIAGNOSTIC INJECTION (SPECIFY SUBSTANCE OR DRUG); SUBCUTANEOUS OR INTRAMUSCULAR 11/25/2013 [facility] Social History Combined list of available smoking, tobacco, and other social history from Department of Defense and Veterans Affairs facilities. Social History Type Response Date Comment Sourc e This section is an empty social history section. [facility] Assessment and Plan Combined list of future care activities from Department of Defense and Veterans Affairs facilities (e.g., assessment and plan notes, appointments, orders, and referrals). Additional future care activities may be listed in the Plan of Care section. Result Assessment and Plan Date Source Assessment and Plan No data available for this section 05/06/2025 Ambulatory Pharmacy Functional Status Combined list of recent functional and cognitive assessments recorded at Department of Defense and Veterans Affairs (OR).VA Functional [place] Measurement (FIM) Scale: 1 = Total Assistance (Subject = 0% +), 2 = Maximal Assistance (Subject = 25% +), 3 = Moderate Assistance (Subject = 50% +), 4 = Minimal Assistance (Subject = 75% +), 5 = Supervision, 6 = Modified [place] (Device), 7 = Complete [place] (Timely, Safely). Assessment Date/Time Source Assessment Type Assessment Skill Assessment Score Assessment Details No data available for this section
== END 2025-05-06 14:25 | disposition home or self-care (01) ==
LOC: HO.HMCH 13:51
PROVIDERS: PCP Internal Medicine; Visit Provider Internal Medicine
DX: Z00.00 Encounter for general adult medical examination without abnormal findings (principal); E66.9 Obesity, unspecified; Z68.31 Body mass index [BMI] 31.0-31.9, adult